=== PATIENT | male | born 1940 | race Caucasian/White ===

== ENCOUNTER → 2017-12-23 | Day surgery (SDC) | payer MEDICARE, OTHER ==
[~2017-12-23] MED LIST: ASPIR 8181 MG PO; ATENOLOL50 MG PO; CRESTOR10 MG PO; FENTANYL CITRATE/PF 100MCG/2 ML INJ IV ONE; FUROSEMIDE40 MG PO; GLIPIZIDE5 MG PO; GLUCAGON FOR INJ 1 MG VIAL IV ONE; HYOSCYAMINE SULFATE 0.5 MG/ML INJ IV ONE; KEFLEX500 MG PO; KETAMINE HCL INJ 50 MG/ML 10 ML VIAL IV ONE; LIDOCAINE HCL 2% LOCAL INJ 5 ML SDV VIAL INJ ONE; METFORMIN HCL500 M2 PO; MIDAZOLAM HCL 2 MG/2 ML VIAL INJ ONE; MULTAQ400 MG PO; MULTI-VITAMIN1 EACH; PROPOFOL IV EMULSION 10 MG/ML 50 ML VIAL IV ONE; PROTONIX PO; ULTRACET PO; VIT D3 PO; ZESTRIL10 MG PO; [UNRECOGNIZED DRUG - OTHER] INJ
[2017-12-23 17:20] VITALS: BP 143/80
--- NOTE | 2017-12-23 17:52 | Operative Report ---
DATE OF PROCEDURE: December 23, 2017 REFERRING PHYSICIAN: Dr. Cindy Canela PROCEDURES PERFORMED 1. Esophagogastroduodenoscopy with biopsies. 2. Colonoscopy with polypectomy and biopsies. INDICATIONS FOR EGD: Anemia, guaiac-positive stools. INDICATIONS FOR COLONOSCOPY: Surveillance colonoscopy, personal history of colon polyps. MEDICATION: Patient was done under MAC. Please see anesthesiologist's note. PROCEDURE: With the patient in the left lateral decubitus position, the flexible fiberoptic Olympus gastroscope was introduced into the esophagus under direct visualization without any difficulty. There was some patchy erythema noted in the distal esophagus. The scope was then advanced with ease into the stomach, traversing a small sliding hiatal hernia. Mucosa overlying the antrum and the body revealed some patchy erythema and low-grade edema, and biopsies were obtained and sent to stain for H. pylori. Pylorus appeared to be of normal contour and shape. It was intubated with ease, and the scope was advanced all the way to the 2nd portion of the duodenum. The scope was then withdrawn slowly. Mucosa overlying the proximal 2nd portion and the duodenal bulb appeared to be within normal limits. The scope was then withdrawn back into the stomach and retroflexed. Mucosa overlying the fundus and the cardia appeared to be within normal limits. The scope was then straightened out. The stomach was decompressed. Scope was subsequently withdrawn. Patient tolerated the procedure well. IMPRESSION 1. Mild distal esophagitis. 2. Small sliding hiatal hernia. 3. Gastritis, biopsied. Biopsies sent to stain for H. pylori. PLAN: Follow up histology. Initiate Protonix 40 mg 1 p.o. q.a.m. a.c. The patient was then turned around. After adequate lubrication of the anal canal, a flexible fiberoptic Olympus colonoscope was inserted into the rectum with ease and advanced all the way to the cecum. A large fungating mass was noted in the cecum, and biopsies were obtained. The ascending appeared to be within normal limits. One polyp was snared from the transverse colon. The descending appeared to be within normal limits. Some diverticular disease was noted in the sigmoid colon. One polyp was snared from the sigmoid colon. One polyp was hot biopsied from the rectum. The scope was then retroflexed into the distal rectum, and small internal hemorrhoids were noted, none of which was actively bleeding. The scope was then straightened out. It was subsequently withdrawn. Patient tolerated the procedure well. IMPRESSION 1. Large cecal mass, biopsied. 2. Transverse colon polyp, snared. 3. Sigmoid colon polyp, snared. 4. Diverticulosis. 5. Rectal polyp, hot biopsied. 6. Internal hemorrhoids, none actively bleeding. PLAN: Follow up histology. Patient will need a CT scan of the abdomen and pelvis and a general surgical consultation. Job#: [id number] cc:CINDY CANELA MD
== END | disposition home or self-care (01) ==
LOC: OR 12:31
PROVIDERS: ATTEND Internal Medicine Gastroenterology
DX: C18.0 Malignant neoplasm of cecum (principal); D12.3 Benign neoplasm of transverse colon; D12.5 Benign neoplasm of sigmoid colon; K62.1 Rectal polyp; K29.70 Gastritis, unspecified, without bleeding; K44.9 Diaphragmatic hernia without obstruction or gangrene; K20.9 Esophagitis, unspecified; D64.9 Anemia, unspecified; K57.30 Diverticulosis of large intestine without perforation or abscess without bleeding; R19.5 Other fecal abnormalities; K64.8 Other hemorrhoids; G47.33 Obstructive sleep apnea (adult) (pediatric); I25.810 Atherosclerosis of coronary artery bypass graft(s) without angina pectoris; E66.9 Obesity, unspecified; E11.9 Type 2 diabetes mellitus without complications; I10 Essential (primary) hypertension; F41.9 Anxiety disorder, unspecified; Z88.2 Allergy status to sulfonamides; Z79.82 Long term (current) use of aspirin; Z79.84 Long term (current) use of oral hypoglycemic drugs; Z68.35 Body mass index [BMI] 35.0-35.9, adult; Z85.46 Personal history of malignant neoplasm of prostate; Z95.1 Presence of aortocoronary bypass graft; Z80.0 Family history of malignant neoplasm of digestive organs
CPT/HCPCS: 36415; 43239; 45380; 45384; 45385; 82948; 88305; 88312; 88342; J1610; J1980; J2001; J2250

== ENCOUNTER → 2017-12-29 | Outpatient (CLI) | payer MEDICARE, OTHER ==
[~2017-12-29] MED LIST changes: +DIATRIZOATE MEGL/DIATRIZOA SOD 30 ML BTL PO ONE; -FENTANYL CITRATE/PF 100MCG/2 ML INJ IV ONE; -GLUCAGON FOR INJ 1 MG VIAL IV ONE; -HYOSCYAMINE SULFATE 0.5 MG/ML INJ IV ONE; +IOPAMIDOL 370 MG/ML 200 ML INFUS..BTL INJ ONE; -KETAMINE HCL INJ 50 MG/ML 10 ML VIAL IV ONE; -LIDOCAINE HCL 2% LOCAL INJ 5 ML SDV VIAL INJ ONE; -MIDAZOLAM HCL 2 MG/2 ML VIAL INJ ONE; -PROPOFOL IV EMULSION 10 MG/ML 50 ML VIAL IV ONE; +SODIUM CHLORIDE 0.9% 50ML 50 ML ONE
[2017-12-29 16:09] LABS: BLOOD UREA NITROGEN 16 mg/dL (7-26); BUN/CREATININE RATIO 15 (6-25); CREATININE, SERUM 1.07 mg/dL (0.72-1.25); EST GLOMERULAR FILTRATION RATE > 60 ML/MIN (60-)
--- NOTE | 2017-12-29 17:38 | Diagnostic Imaging Report ---
EXAM: CT of the abdomen and pelvis WITH contrast HISTORY: Mass, prostate cancer, colonoscopy one week ago, blood in stool COMPARISON: None available. TECHNIQUE: The abdomen and pelvis were scanned utilizing a multidetector helical scanner. Coronal and sagittal reformats are provided. PROTOCOL: Routine IV CONTRAST: 100 cc of Isovue-370. ORAL CONTRAST: Dilute Gastrografin RADIATION DOSE: Total DLP: 863.01 mGy*cm Estimated effective dose: (DLP x 0.015 x size factor) Dose modulation, iterative reconstruction, and/or weight based adjustment of the mA/kV was utilized to reduce the radiation dose to as low as reasonably achievable. COMPLICATIONS: None FINDINGS: LOWER THORAX: Mild bilateral atelectasis versus scarring. HEPATOBILIARY: No focal hepatic lesions. No biliary ductal dilatation. The gallbladder is unremarkable. SPLEEN: No splenomegaly. PANCREAS: No focal masses or ductal dilatation. ADRENALS: No discrete adrenal nodule. KIDNEYS/URETERS: No hydronephrosis, stones, or solid mass lesions. PELVIC ORGANS/BLADDER: Mild enlargement and nonspecific lobulated mass effect on the base of the urinary bladder by the prostate. PERITONEUM / RETROPERITONEUM: No free air or fluid. LYMPH NODES: No pathologically enlarged lymph node. VESSELS: Diffuse scattered atherosclerotic vascular calcifications. GI TRACT: No bowel dilation. Radiopaque contrast material predominantly within the distal small bowel and likely proximal colon. Nonspecific segmental ill-defined finley and likely wall thickening in the region of the cecum and proximal ascending colon. Mild adjacent fat straining. BONES: Diffusely decreased mineralization of the osseous structures limits bone detail. Multifocal degenerative changes, most notably severe at L5-S1 with bilateral L5 pars defects and grade 1 anterolisthesis of L5 on S1. SOFT TISSUES: Unremarkable. IMPRESSION: Mild nonspecific focal colitis involving the cecum and proximal ascending colon. Signed by: Dr. Olivier Pérez D.O., M.M.M. on 12/29/2017 5:35 PM
== END ==
LOC: CT 14:52
PROVIDERS: ATTEND Internal Medicine Gastroenterology
DX: C18.9 Malignant neoplasm of colon, unspecified (principal)
CPT/HCPCS: 36415; 74177; 82565; 84520; Q9663; Q9967

== ENCOUNTER 2018-01-24 09:39 | Inpatient (IN) | payer MEDICARE, OTHER ==
[2018-01-20 11:37] LABS: BASOPHILS # (AUTO) 0.1 (0.0-0.1); BASOPHILS % 0.7 % (0.0-1.0); EOSINOPHILS # (AUTO) 0.5 (0.0-0.4); EOSINOPHILS % 5.7 % (0.0-6.0); HEMATOCRIT 31.7 % (38.2-49.6); HEMOGLOBIN 9.9 g/dL (14.0-18.0); LYMPHOCYTES # (AUTO) 1.3 (1.0-3.2); LYMPHOCYTES % 16.2 % (18.0-39.1); MEAN CORPUSCULAR HEMOGLOBIN 25.9 pg (28-32); MEAN CORPUSCULAR HGB CONC 31.2 g/dL (31-35); MONOCYTES # (AUTO) 0.9 (0.2-0.8); MONOCYTES % 10.9 % (4.4-11.3); NEUTROPHILS # (AUTO) 5.5 (2.1-6.9); NEUTROPHILS % 66.3 % (38.7-80.0); PLATELET COUNT 217 x10e3/uL (140-360); RED BLOOD COUNT 3.82 x10e6/uL (4.3-5.7); RED CELL DISTRIBUTION WIDTH 14.5 % (11.7-14.4)
--- NOTE | 2018-01-20 11:42 | Diagnostic Imaging Report ---
EXAMINATION: PA and lateral views of the chest. COMPARISON: CT abdomen and pelvis 12/29/2017 CLINICAL HISTORY: Preoperative study for colon surgery DISCUSSION: The lungs are well-inflated. No focal airspace consolidation, pleural effusion, or pneumothorax. Mild prominence of the pulmonary interstitium with a basal predominance likely reflects age-related fibrotic changes. Median sternotomy wires, the most superior of which is fractured. Tortuous thoracic aorta with atherosclerotic calcification. Normal heart size. No pulmonary edema. No acute osseous abnormality. Multilevel degenerative disc changes of the thoracic spine. IMPRESSION: No acute cardiopulmonary abnormalities. Signed by: Dr. Laith Bergman M.D. on 01/20/2018 11:39 AM
[2018-01-20 11:56] LABS: ANION GAP 11.2 mmol/L (8-16); BLOOD UREA NITROGEN 15 mg/dL (7-26); BUN/CREATININE RATIO 14 (6-25); CALCIUM 9.6 mg/dL (8.4-10.2); CARBON DIOXIDE 31 mmol/L (22-29); CHLORIDE 102 mmol/L (98-107); CREATININE, SERUM 1.04 mg/dL (0.72-1.25); EST GLOMERULAR FILTRATION RATE > 60 ML/MIN (60-); GLUCOSE 99 mg/dL (74-118); POTASSIUM 4.2 mmol/L (3.5-5.1); SODIUM 140 mmol/L (136-145)
[~2018-01-24] VITALS: Ht 172.7 cm; Wt 119.7 kg
[~2018-01-24 09:39] MED LIST changes: -DIATRIZOATE MEGL/DIATRIZOA SOD 30 ML BTL PO ONE; -IOPAMIDOL 370 MG/ML 200 ML INFUS..BTL INJ ONE; -MULTAQ400 MG PO; -SODIUM CHLORIDE 0.9% 50ML 50 ML ONE; -ULTRACET PO
--- OUTSIDE RECORDS SUMMARY | 2018-01-24 09:41 | XMS REPORT ---
Author Author [facility] Address Unknown Phone Unavailable Care Team Providers Care [employer] Name Role Phone Jose DELAROSA Unavailable Unavailable SETH CANELA Unavailable Unavailable Problems This patient has no known problems. Allergies, Adverse Reactions, Alerts This patient has no known allergies or adverse reactions. Medications This patient has no known medications. Results Test Description Test Time Test Comments Text Results Atomic Results Result Comments CHEST 2 VIEWS 2018-01-20 11:37:00 [place] [address] Patient Name: PATSY MUSTAFA MR #: [id number] : 1940 Age/Sex: 78/M Req #: [id number] Adm Physician: Ordered by: HOANG DELAROSA MD Report #: [id number] Location: OR Room/Bed: Procedure: [id number] DX/CHEST 2 VIEWS Exam Date: 01/20/18 Exam Time: 1115 REPORT STATUS: Signed EXAMINATION: PA and lateral views of the chest. COMPARISON: CT abdomen and pelvis 12/29/2017 CLINICAL HISTORY: Preoperative study for colon surgery DISCUSSION: The lungs are well-inflated. No focal airspace consolidation, pleural effusion, or pneumothorax. Mild prominence of the pulmonary interstitium with a basal predominance likely reflects age-related fibrotic changes. Median sternotomy wires, the most superior of which is fractured. Tortuous thoracic aorta with atherosclerotic calcification. Normal heart size. No pulmonary edema. No acute osseous abnormality. Multilevel degenerative disc changes of the thoracic spine. IMPRESSION: No acute cardiopulmonary abnormalities. Signed by: Dr. Sixto Mahoney M.D. on 01/20/2018 11:39 AM Dictated By: SIXTO MAHONEY MD 38 Transcribed By: CHILANGO on 01/20/181138 COPY TO: HOANG DELAROSA MD CT ABDOMEN/PELVIS W 2017-12-29 17:23:00 [place] [address] Patient Name: PATSY MUSTAFA MR #: [id number] : 1940 Age/Sex: 77/M Req #: [id number] Adm Physician: Ordered by: SETH CANELA MD Report #: [id number] Location: CT Room/Bed: Procedure: [id number] CT/CT ABDOMEN/PELVIS W Exam Date: 12/29/17 Exam Time: 1645 REPORT STATUS: Signed EXAM: CT of the abdomen and pelvis WITH contrast HISTORY: Mass, prostate cancer, colonoscopy one week ago, blood in stool COMPARISON: None available. TECHNIQUE: The abdomen and pelvis were scanned utilizing a multidetector helical scanner. Coronal and sagittal reformats are provided. PROTOCOL: Routine IV CONTRAST: 100 cc of Isovue-370. ORAL CONTRAST: Dilute Gastrografin RADIATION DOSE: Total DLP: 863.01 mGy*cm Estimated effective dose: (DLP x 0.015 x size factor) Dose modulation, iterative reconstruction, and/or weight based adjustment of the mA/kV was utilized to reduce the radiation dose to as low as reasonably achievable. COMPLICATIONS: None FINDINGS: LOWER THORAX: Mild bilateral atelectasis versus scarring. HEPATOBILIARY: No focal hepatic lesions. No biliary ductal dilatation. The gallbladder is unremarkable. SPLEEN: No splenomegaly. PANCREAS: No focal masses or ductal dilatation. ADRENALS: No discrete adrenal nodule. KIDNEYS/URETERS: No hydronephrosis, stones, or solid mass lesions. PELVIC ORGANS/BLADDER: Mild enlargement and nonspecific lobulated mass effect on the base of the urinary bladder by the prostate. PERITONEUM / RETROPERITONEUM: No free air or fluid. LYMPH NODES: No pathologically enlarged lymph node. VESSELS: Diffuse scattered atherosclerotic vascular calcifications. GI TRACT: No bowel dilation. Radiopaque contrast material predominantly within the distal small bowel and likely proximal colon. Nonspecific segmental ill-defined finley and likely wall thickening in the region of the cecum and proximal ascending colon. Mild adjacent fat straining. BONES: Diffusely decreased mineralization of the osseous structures limits bone detail. Multifocal degenerative changes, most notably severe at L5-S1 with bilateral L5 pars defects and grade 1 anterolisthesis of L5 on S1. SOFT TISSUES: Unremarkable. IMPRESSION: Mild nonspecific focal colitis involving the cecum and proximal ascending colon. Signed by: Dr. Olivier Pérez D.O., M.M.M. on 12/29/2017 5:35 PM Dictated By: OLIVIER PÉREZ DO 1735 Transcribed By: CHILANGO on 12/29/17 173 COPY TO: SETH CANELA MD
[2018-01-24] MEDS ORDERED: ACETAMINOPHEN 1000 MG/100 ML 100 ML IV ONE (13:21)
[2018-01-24] MEDS ORDERED: HYDROMORPHONE 1MG/1ML INJ IV PRN (14:45)
[2018-01-24] MEDS ORDERED: ONDANSETRON HCL INJ 2 MG/ML VIAL IV PRN (14:45)
[2018-01-24] MEDS ORDERED: ACETAMINOPHEN 1000 MG/100 ML IV PRN (14:45)
[2018-01-24] MEDS ORDERED: HYDROMORPHONE 0.2MG/ML-SOD CHL 30ML PCA SYRINGE IV ONE (14:59)
[2018-01-24] MEDS ORDERED: HYDROMORPHONE 2MG/ML 2 MG/ML ML ONE (15:07)
--- NOTE | 2018-01-24 15:16 | Operative Report ---
DATE OF PROCEDURE: January 24, 2018 PREOPERATIVE DIAGNOSIS: Carcinoma of the cecum. POSTOPERATIVE DIAGNOSIS: Carcinoma of the cecum. OPERATION PERFORMED: Exploratory laparotomy and right hemicolectomy. GEOMAGNETIST: Dr. Jah Barnard and SATYA Carroll. ANESTHESIA: General. COMPLICATIONS: None. ESTIMATED BLOOD LOSS: 50 mL. DESCRIPTION OF PROCEDURE: With the patient lying in bed in the supine position under general endotracheal anesthesia, the abdomen was prepped with Betadine solution and draped in the usual manner. A midline incision was made, was carried down through the subcutaneous tissue and through the midline fascia. The peritoneum was opened and the abdomen was entered. Upon entering the abdominal cavity, exploration revealed that there was a palpable mass in the cecal pouch. The rest the abdominal exploration was within normal limits. The liver was free of any metastatic disease that was palpable and the rest of the bowel also did not show any sign of any metastatic spread of disease. We decided to go ahead and proceed with the right hemicolectomy. The lesion in the cecum was actually showing some puckering of the serosa. The right colon was then mobilized off the lateral gutter and the duodenum and ureter were from the specimen. The colon was swung medially. The hepatocolic ligament was then brought down using the EnSeal device. At this point, the colon was then divided at the level of the mid transverse colon with an application of the GILMAR 75 stapler and similarly the small bowel was divided with another application of the GILMAR 75 stapler. The mesentery was then scored and was then divided using the EnSeal device. The larger vessels were also ligated with 0 silk and the specimen was totally and completely removed and sent for pathological examination. The anastomosis was then performed bringing the terminal ileum to the transverse colon using another application of the GILMAR 75 stapler. The remaining opening was closed with a TIA-60 stapler. Gloves and instruments were changed. The anastomosis was reinforced with 3-0 silk. The mesenteric rent was then closed with a running suture of 2-0 Vicryl. The abdomen was copiously irrigated and perfect hemostasis was ascertained and the abdomen was then closed in layers. The peritoneum was closed with a running suture number 1 Vicryl. The midline fascia was closed with a running suture number 1 Vicryl, and the skin was closed with clips. A dressing was applied. The sponge, lap and needle count was correct. The patient tolerated the procedure well and returned to the recovery room in stable condition. Job#: [id number] ANGÉLICA
[2018-01-24 15:58] VITALS: BP 181/79
[2018-01-24 16:35] VITALS: BP 175/85
[2018-01-24] MEDS: LISINOPRIL 10 MG TAB PO SCH (17:30)
[2018-01-24] MEDS: SODIUM CHLORIDE 0.9% 1000ML 1,000 ML IV SCH (17:32)
[2018-01-24] MEDS ORDERED: MORPHINE SULFATE INJ 10 MG/ML ONE (17:39)
[2018-01-24] MEDS ORDERED: FENTANYL CITRATE/PF 100MCG/2 ML INJ ONE (17:39)
[2018-01-24] MEDS ORDERED: MIDAZOLAM HCL 2 MG/2 ML VIAL ONE (17:39)
[2018-01-24] MEDS: PANTOPRAZOLE 40 MG 10ML VIAL IV SCH (17:40)
[2018-01-24] MEDS: CEFOXITIN SOD 1 GM VIAL IV SCH (17:45)
[2018-01-24] MEDS ORDERED: CEFOXITIN 1GM/ NS 50ML 50 ML IV SCH (18:00)
[2018-01-24] MEDS: INSULIN REGULAR, HUMAN 100 UNIT/1 ML 3ML VIAL SQ SCH (18:00)
[2018-01-24] MEDS: SODIUM CHLORIDE 0.9% 250ML IRRIG IR SCH (18:30)
[2018-01-24] MEDS ORDERED: DEXAMETHASONE SOD PHOS INJ 4 MG/ML VIAL ONE (18:56)
[2018-01-24] MEDS ORDERED: ONDANSETRON HCL INJ 2 MG/ML VIAL ONE (18:56)
[2018-01-24] MEDS ORDERED: SEVOFLURANE INHAL SOLN 250 ML PEN BTL ONE (18:56)
[2018-01-24] MEDS ORDERED: ROCURONIUM BROMIDE 10 MG/ML 5ML VIAL ONE (18:56)
[2018-01-24] MEDS ORDERED: PROPOFOL IV EMULSION 10 MG/ML 20 ML VIAL ONE (18:56)
[2018-01-24] MEDS ORDERED: SUCCINYLCHOLINE 200 MG/10 ML SYR ONE (18:56)
[2018-01-24] MEDS ORDERED: LIDOCAINE HCL 2% LOCAL INJ 5 ML SDV VIAL INJ ONE (18:56)
[2018-01-24] MEDS ORDERED: ACETAMINOPHEN 1000 MG/100 ML IV ONE (18:56)
[2018-01-24] MEDS ORDERED: GLYCOPYRROLATE INJ 1MG/ 5 ML SYR ONE (18:56)
[2018-01-24] MEDS ORDERED: NEOSTIGMINE 5 MG/5ML SYR ONE (18:56)
[2018-01-24 20:00] VITALS: BP 167/77
[2018-01-24 20:05] VITALS: BP 167/77
[2018-01-24] MEDS: HYDROMORPHONE 2MG/ML 2 MG/ML ML IV PRN ×2 (20:20→23:40)
[2018-01-24] MEDS: ATENOLOL 50 MG TAB PO SCH (21:15)
[2018-01-25] VITALS (8 sets, daily range): BP systolic 115–166; BP diastolic 55–76
[2018-01-25] MEDS: CEFOXITIN SOD 1 GM VIAL IV SCH (00:20)
[2018-01-25] MEDS: SODIUM CHLORIDE 0.9% 250ML IRRIG IR SCH ×5 (00:38→14:45)
[2018-01-25] MEDS: SODIUM CHLORIDE 0.9% 1000ML 1,000 ML IV SCH ×3 (00:38→21:29)
[2018-01-25] MEDS: HYDROMORPHONE 2MG/ML 2 MG/ML ML IV PRN ×3 (05:25→18:41)
[2018-01-25] MEDS: INSULIN REGULAR, HUMAN 100 UNIT/1 ML 3ML VIAL SQ SCH ×4 (06:00→18:00)
[2018-01-25 06:18] LABS: BASOPHILS % 0.2 % (0.0-1.0); HEMATOCRIT 31.4 % (38.2-49.6); HEMOGLOBIN 9.9 g/dL (14.0-18.0); LYMPHOCYTES # (AUTO) 0.6 (1.0-3.2); LYMPHOCYTES % 5.4 % (18.0-39.1); MEAN CORPUSCULAR HEMOGLOBIN 25.8 pg (28-32); MEAN CORPUSCULAR HGB CONC 31.5 g/dL (31-35); MEAN CORPUSCULAR VOLUME 81.8 fL (81-99); MONOCYTES % 8.7 % (4.4-11.3); NEUTROPHILS # (AUTO) 9.7 (2.1-6.9); NEUTROPHILS % 85.3 % (38.7-80.0); PLATELET COUNT 224 x10e3/uL (140-360); RED BLOOD COUNT 3.84 x10e6/uL (4.3-5.7); RED CELL DISTRIBUTION WIDTH 14.5 % (11.7-14.4)
[2018-01-25 06:51] LABS: ANION GAP 14.3 mmol/L (8-16); BLOOD UREA NITROGEN 7 mg/dL (7-26); BUN/CREATININE RATIO 8 (6-25); CALCIUM 8.7 mg/dL (8.4-10.2); CARBON DIOXIDE 25 mmol/L (22-29); CHLORIDE 103 mmol/L (98-107); CREATININE, SERUM 0.86 mg/dL (0.72-1.25); EST GLOMERULAR FILTRATION RATE > 60 ML/MIN (60-); GLUCOSE 139 mg/dL (74-118); POTASSIUM 4.3 mmol/L (3.5-5.1); SODIUM 138 mmol/L (136-145)
[2018-01-25] MEDS: LISINOPRIL 10 MG TAB PO SCH ×2 (09:00→17:26)
[2018-01-25] MEDS: PANTOPRAZOLE 40 MG 10ML VIAL IV SCH (10:32)
[2018-01-25] MEDS ORDERED: CEFOXITIN SOD 1 GM VIAL ONE (18:57)
[2018-01-25] MEDS: ATENOLOL 50 MG TAB PO SCH (21:30)
[2018-01-25] MEDS: BISACODYL 10 MG SUPP PR SCH (21:30)
[2018-01-26] VITALS (7 sets, daily range): BP systolic 148–180; BP diastolic 72–77
[2018-01-26] MEDS: HYDROMORPHONE 2MG/ML 2 MG/ML ML IV PRN ×2 (00:10→09:09)
[2018-01-26 05:53] LABS: BASOPHILS # (AUTO) 0.1 (0.0-0.1); BASOPHILS % 0.5 % (0.0-1.0); EOSINOPHILS # (AUTO) 0.3 (0.0-0.4); EOSINOPHILS % 2.5 % (0.0-6.0); HEMATOCRIT 30.7 % (38.2-49.6); HEMOGLOBIN 9.6 g/dL (14.0-18.0); LYMPHOCYTES # (AUTO) 1.4 (1.0-3.2); LYMPHOCYTES % 12.9 % (18.0-39.1); MEAN CORPUSCULAR HEMOGLOBIN 25.8 pg (28-32); MEAN CORPUSCULAR HGB CONC 31.3 g/dL (31-35); MEAN CORPUSCULAR VOLUME 82.5 fL (81-99); MONOCYTES % 9.7 % (4.4-11.3); NEUTROPHILS # (AUTO) 7.7 (2.1-6.9); PLATELET COUNT 206 x10e3/uL (140-360); RED BLOOD COUNT 3.72 x10e6/uL (4.3-5.7); RED CELL DISTRIBUTION WIDTH 14.5 % (11.7-14.4)
[2018-01-26] MEDS: INSULIN REGULAR, HUMAN 100 UNIT/1 ML 3ML VIAL SQ SCH ×4 (06:00→19:24)
[2018-01-26] MEDS: SODIUM CHLORIDE 0.9% 1000ML 1,000 ML IV SCH (06:04)
[2018-01-26 06:12] LABS: ANION GAP 12.9 mmol/L (8-16); BLOOD UREA NITROGEN 10 mg/dL (7-26); BUN/CREATININE RATIO 12 (6-25); CALCIUM 8.7 mg/dL (8.4-10.2); CARBON DIOXIDE 25 mmol/L (22-29); CHLORIDE 103 mmol/L (98-107); CREATININE, SERUM 0.83 mg/dL (0.72-1.25); EST GLOMERULAR FILTRATION RATE > 60 ML/MIN (60-); GLUCOSE 121 mg/dL (74-118); POTASSIUM 3.9 mmol/L (3.5-5.1); SODIUM 137 mmol/L (136-145)
[2018-01-26] MEDS: BISACODYL 10 MG SUPP PR SCH ×2 (09:08→21:00)
[2018-01-26] MEDS: PANTOPRAZOLE 40 MG 10ML VIAL IV SCH (09:09)
[2018-01-26] MEDS: LISINOPRIL 10 MG TAB PO SCH ×2 (09:09→17:13)
[2018-01-26] MEDS ORDERED: ZOLPIDEM TARTRATE 10 MG TAB PO PRN (10:30)
[2018-01-26] MEDS ORDERED: FUROSEMIDE INJ 10 MG/ML 4 ML VIAL IV NR (20:00)
[2018-01-26] MEDS: ATENOLOL 50 MG TAB PO SCH (21:18)
[2018-01-27] VITALS (9 sets, daily range): BP systolic 102–143; BP diastolic 61–87
[2018-01-27 05:55] LABS: BASOPHILS % 0.4 % (0.0-1.0); EOSINOPHILS # (AUTO) 0.3 (0.0-0.4); EOSINOPHILS % 2.9 % (0.0-6.0); HEMATOCRIT 30.4 % (38.2-49.6); HEMOGLOBIN 9.5 g/dL (14.0-18.0); LYMPHOCYTES # (AUTO) 1.2 (1.0-3.2); LYMPHOCYTES % 11.9 % (18.0-39.1); MEAN CORPUSCULAR HEMOGLOBIN 25.4 pg (28-32); MEAN CORPUSCULAR HGB CONC 31.3 g/dL (31-35); MEAN CORPUSCULAR VOLUME 81.3 fL (81-99); MONOCYTES # (AUTO) 0.9 (0.2-0.8); MONOCYTES % 9.2 % (4.4-11.3); NEUTROPHILS # (AUTO) 7.6 (2.1-6.9); NEUTROPHILS % 75.2 % (38.7-80.0); PLATELET COUNT 214 x10e3/uL (140-360); RED BLOOD COUNT 3.74 x10e6/uL (4.3-5.7); RED CELL DISTRIBUTION WIDTH 14.6 % (11.7-14.4)
[2018-01-27] MEDS: INSULIN REGULAR, HUMAN 100 UNIT/1 ML 3ML VIAL SQ SCH ×5 (05:59→23:48)
[2018-01-27 06:12] LABS: ANION GAP 13.6 mmol/L (8-16); BLOOD UREA NITROGEN 7 mg/dL (7-26); BUN/CREATININE RATIO 9 (6-25); CALCIUM 8.6 mg/dL (8.4-10.2); CARBON DIOXIDE 26 mmol/L (22-29); CHLORIDE 98 mmol/L (98-107); CREATININE, SERUM 0.81 mg/dL (0.72-1.25); EST GLOMERULAR FILTRATION RATE > 60 ML/MIN (60-); GLUCOSE 132 mg/dL (74-118); POTASSIUM 3.6 mmol/L (3.5-5.1); SODIUM 134 mmol/L (136-145)
[2018-01-27] MEDS: BISACODYL 10 MG SUPP PR SCH (08:00)
[2018-01-27] MEDS: PANTOPRAZOLE 40 MG 10ML VIAL IV SCH (08:48)
[2018-01-27] MEDS: LISINOPRIL 10 MG TAB PO SCH ×2 (08:49→18:18)
[2018-01-27] MEDS ORDERED: POTASSIUM CHLORIDE 20 MEQ TAB CR PO STA (10:57)
[2018-01-27] MEDS ORDERED: METOPROLOL TARTRATE 25 MG TAB PO PRN (11:15)
[2018-01-27] MEDS: DRONEDARONE 400 MG TAB PO SCH ×2 (11:22→18:17)
[2018-01-27] MEDS: FUROSEMIDE INJ 10 MG/ML 4 ML VIAL IV SCH (11:22)
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
[2018-01-27] MEDS: ATENOLOL 50 MG TAB PO SCH (21:12)
[2018-01-28] MEDS: INSULIN REGULAR, HUMAN 100 UNIT/1 ML 3ML VIAL SQ SCH ×2 (06:00→12:00)
[2018-01-28 06:13] VITALS: BP 150/94
[2018-01-28 06:21] LABS: BASOPHILS % 0.4 % (0.0-1.0); EOSINOPHILS # (AUTO) 0.4 (0.0-0.4); EOSINOPHILS % 3.8 % (0.0-6.0); HEMATOCRIT 33.8 % (38.2-49.6); HEMOGLOBIN 10.8 g/dL (14.0-18.0); LYMPHOCYTES # (AUTO) 1.5 (1.0-3.2); LYMPHOCYTES % 15.8 % (18.0-39.1); MEAN CORPUSCULAR HEMOGLOBIN 25.7 pg (28-32); MEAN CORPUSCULAR VOLUME 80.5 fL (81-99); MONOCYTES # (AUTO) 0.9 (0.2-0.8); MONOCYTES % 9.7 % (4.4-11.3); NEUTROPHILS # (AUTO) 6.8 (2.1-6.9); NEUTROPHILS % 69.8 % (38.7-80.0); PLATELET COUNT 279 x10e3/uL (140-360); RED CELL DISTRIBUTION WIDTH 14.5 % (11.7-14.4)
[2018-01-28 07:08] LABS: ALANINE AMINOTRANSFERASE 17 IU/L (0-55); ALBUMIN/GLOBULIN RATIO 0.8 (0.8-2.0); ALKALINE PHOSPHATASE 92 IU/L (40-150); ANION GAP 15.4 mmol/L (8-16); BLOOD UREA NITROGEN 10 mg/dL (7-26); BUN/CREATININE RATIO 9 (6-25); CALCIUM 9.3 mg/dL (8.4-10.2); CARBON DIOXIDE 27 mmol/L (22-29); CHLORIDE 94 mmol/L (98-107); CREATININE, SERUM 1.07 mg/dL (0.72-1.25); EST GLOMERULAR FILTRATION RATE > 60 ML/MIN (60-); GLUCOSE 131 mg/dL (74-118); POTASSIUM 4.4 mmol/L (3.5-5.1); SODIUM 132 mmol/L (136-145)
[2018-01-28 07:21] LABS: THYROID STIMULATING HORMONE 2.379 uIU/mL (0.350-4.940)
[2018-01-28 07:41] VITALS: BP 142/73
[2018-01-28] MEDS: FUROSEMIDE INJ 10 MG/ML 4 ML VIAL IV SCH (08:45)
[2018-01-28] MEDS: PANTOPRAZOLE 40 MG 10ML VIAL IV SCH (08:45)
[2018-01-28] MEDS: LISINOPRIL 10 MG TAB PO SCH (08:45)
[2018-01-28] MEDS: DRONEDARONE 400 MG TAB PO SCH (08:45)
[2018-01-28 09:23] VITALS: BP 142/73
[2018-01-28] MEDS ORDERED: FUROSEMIDE INJ 10 MG/ML 4 ML VIAL IV SCH (11:00)
[2018-01-28 12:45] VITALS: BP 117/67
[2018-01-28] MEDS ORDERED: MULTAQ400 MG PO (14:22)
[2018-01-28] MEDS ORDERED: ULTRACET PO (14:24)
== END 2018-01-28 15:30 | disposition home or self-care (01) | DRG 330 ==
LOC: OR 09:39 → PACU V 14:36 → MED/SURG 15:31
PROVIDERS: ADMIT Surgery; ATTEND Surgery
PROC: 0DTF0ZZ Resection of Right Large Intestine, Open Approach (ICD-10-PCS; principal; 2018-01-24 12:34)
DX: C18.0 Malignant neoplasm of cecum (principal); I97.191 Other postprocedural cardiac functional disturbances following other surgery; E11.9 Type 2 diabetes mellitus without complications; I10 Essential (primary) hypertension; Z95.1 Presence of aortocoronary bypass graft; Z88.2 Allergy status to sulfonamides; D64.9 Anemia, unspecified; G47.33 Obstructive sleep apnea (adult) (pediatric); I25.10 Atherosclerotic heart disease of native coronary artery without angina pectoris; E78.5 Hyperlipidemia, unspecified; K44.9 Diaphragmatic hernia without obstruction or gangrene; Z85.46 Personal history of malignant neoplasm of prostate; I48.0 Paroxysmal atrial fibrillation; E78.00 Pure hypercholesterolemia, unspecified; I83.893 Varicose veins of bilateral lower extremities with other complications; Z87.891 Personal history of nicotine dependence; Z01.810 Encounter for preprocedural cardiovascular examination; Z01.812 Encounter for preprocedural laboratory examination; Z01.811 Encounter for preprocedural respiratory examination
CPT/HCPCS: 36415; 71046; 80048; 80053; 82948; 84443; 85025; 86850; 86900; 88307; 88309; 93005; 93306; J0694; J1100; J1940; J2001; J2250; J2270; J2405; J7030

== ENCOUNTER → 2018-10-30 | Outpatient (CLI) | payer MEDICARE, OTHER ==
[~2018-10-30] MED LIST changes: +IOPAMIDOL 370 MG/ML 200 ML INFUS..BTL INJ ONE; +MULTAQ400 MG PO; +SODIUM CHLORIDE 0.9% 50ML 50 ML ONE; +ULTRACET PO
--- NOTE | 2018-10-30 14:43 | Diagnostic Imaging Report ---
EXAM: CT Abdomen and Pelvis WITH intravenous contrast INDICATION: Abdominal pain COMPARISON: CT abdomen pelvis of 12/29/2017 TECHNIQUE: Abdomen and pelvis were scanned utilizing a multidetector helical scanner from the lung base to the pubic symphysis after administration of IV contrast. Coronal and sagittal reformations were obtained. Routine protocol was performed. Scan was performed during portal venous phase. IV CONTRAST: 100mL of Isovue 370 ORAL CONTRAST: Water RADIATION DOSE: Total DLP: 880.9 mGy*cm Dose modulation, iterative reconstruction, and/or weight based adjustment of the mA/kV was utilized to reduce the radiation dose to as low as reasonably achievable. FINDINGS: LOWER THORAX: Bibasilar dependent subsegmental atelectasis. No focal consolidation. Scattered athetotic calcifications of the coronary arteries. HEPATOBILIARY: No focal hepatic lesions. No biliary ductal dilatation. The gallbladder appears unremarkable. SPLEEN: No splenomegaly. PANCREAS: No focal masses or ductal dilatation. ADRENALS: No adrenal nodules. KIDNEYS/URETERS: No hydronephrosis, stones, or solid mass lesions. PELVIC ORGANS/BLADDER: Prostatomegaly to 5.4 cm. PERITONEUM / RETROPERITONEUM: No free air or fluid. LYMPH NODES: No lymphadenopathy. VESSELS: Diffuse atherosclerotic calcifications of the nonaneurysmal abdominal aorta and major branches. GI TRACT: Colonic diverticulosis. No CT evidence of diverticulitis. Postoperative findings of interval right colectomy. No abnormal bowel wall thickening. No bowel obstruction. BONES AND SOFT TISSUES: No acute osseous injury. Degenerative changes of the visualized spine. Anterolisthesis at L5-S1 with bilateral L5 pars interarticularis defects. No suspicious lytic or blastic lesions. IMPRESSION: Status post interval right colectomy. No abnormal bowel wall thickening or bowel obstruction. Diffuse atherosclerotic calcifications, including of the coronary arteries. Prostatomegaly. Signed by: Avani Medeiros MD on 10/30/2018 2:40 PM
== END ==
LOC: CT 12:13
DX: R10.9 Unspecified abdominal pain (principal); N40.0 Benign prostatic hyperplasia without lower urinary tract symptoms; Z85.00 Personal history of malignant neoplasm of unspecified digestive organ
CPT/HCPCS: 74177; Q9967

== ENCOUNTER 2019-11-08 05:05 | Observation (INO) | payer MEDICARE, OTHER ==
[2019-11-05 12:22] LABS: BASOPHILS # (AUTO) 0.1 (0.0-0.1); BASOPHILS % 1.1 % (0.0-1.0); EOSINOPHILS # (AUTO) 0.5 (0.0-0.4); EOSINOPHILS % 6.2 % (0.0-6.0); HEMATOCRIT 36.3 % (38.2-49.6); HEMOGLOBIN 12.1 g/dL (14.0-18.0); LYMPHOCYTES # (AUTO) 1.1 (1.0-3.2); LYMPHOCYTES % 15.6 % (18.0-39.1); MEAN CORPUSCULAR HEMOGLOBIN 30.1 pg (28-32); MEAN CORPUSCULAR HGB CONC 33.3 g/dL (31-35); MEAN CORPUSCULAR VOLUME 90.3 fL (81-99); MONOCYTES # (AUTO) 0.7 (0.2-0.8); MONOCYTES % 9.9 % (4.4-11.3); NEUTROPHILS # (AUTO) 4.8 (2.1-6.9); NEUTROPHILS % 66.8 % (38.7-80.0); PLATELET COUNT 158 x10e3/uL (140-360); RED BLOOD COUNT 4.02 x10e6/uL (4.3-5.7); RED CELL DISTRIBUTION WIDTH 13.1 % (11.7-14.4)
[2019-11-05 12:46] LABS: INR 1.28; PROTHROMBIN TIME 16.6 seconds (11.9-14.5)
[2019-11-05 12:47] LABS: PARTIAL THROMBOPLASTIN TIME 32.7 seconds (23.8-35.5)
[2019-11-05 12:50] LABS: ANION GAP 12.9 mmol/L (8-16); CALCIUM 9.5 mg/dL (8.4-10.2); CREATININE, SERUM 1.32 mg/dL (0.72-1.25); POTASSIUM 3.9 mmol/L (3.5-5.1)
[~2019-11-08] VITALS: Ht 182.9 cm; Wt 129.3 kg
[~2019-11-08 05:05] MED LIST changes: +FLOMAX0.4 MG PO; -IOPAMIDOL 370 MG/ML 200 ML INFUS..BTL INJ ONE; +IRON PO; +METOLAZONE5 MG PO; -SODIUM CHLORIDE 0.9% 50ML 50 ML ONE; +TYLENOL325 M2 PO; +VITAMIN D310 MCG PO; +XARELTO20 MG PO
[2019-11-08] MEDS ORDERED: CEFAZOLIN SOD 1 GM/NS 50ML 100 ML IV ONE (06:00)
[2019-11-08] MEDS ORDERED: BUPIVACAINE 0.5%/EPI 30 ML SDV INJ ONE (06:40)
[2019-11-08] MEDS ORDERED: VANCOMYCIN HCL 1 GM VIAL ONE (06:40)
[2019-11-08] MEDS ORDERED: THROMBIN FOR SOLN 5,000 UNIT VIAL ONE (06:40)
[2019-11-08] MEDS ORDERED: IBUPROFEN 800MG/ 200ML 200 ML IV ONE (07:12)
[2019-11-08] MEDS ORDERED: LIDOCAINE HCL (LTA) 4 ML SOLN ONE (07:12)
[2019-11-08] MEDS ORDERED: SUGAMMADEX SODIUM 200 MG/2 ML VIAL IV ONE (08:16)
[2019-11-08] MEDS ORDERED: CEPACOL SORE THROAT LOZENGES PO PRN (08:45)
[2019-11-08] MEDS ORDERED: PROMETHAZINE HCL (IM) 25 MG/ML VIAL IM PRN (08:45)
[2019-11-08] MEDS ORDERED: ACETAMINOPHEN 325 MG TAB PO PRN (08:45)
[2019-11-08] MEDS ORDERED: ZOLPIDEM TARTRATE 5 MG TAB PO PRN (08:45)
[2019-11-08] MEDS ORDERED: CARISOPRODOL 350 MG TAB PO PRN (08:45)
[2019-11-08] MEDS ORDERED: MAGNESIUM/ALUMINUM/SIMETHICONE 30 ML UDC PO PRN (08:45)
[2019-11-08] MEDS ORDERED: OXYCODONE/ACETAMINOPHEN 5-325 1 EACH TABLET PO PRN (08:45)
[2019-11-08] MEDS ORDERED: ONDANSETRON HCL INJ 2MG/ML 2ML 2 MG/ML VIAL IV PRN (08:45)
[2019-11-08] MEDS ORDERED: HYDROMORPHONE 2MG/ML 2 MG/ML ML IV PRN (08:45)
[2019-11-08] MEDS ORDERED: MORPHINE SULFATE INJ 4 MG/ML INJ 1ML IM PRN (08:45)
[2019-11-08] MEDS ORDERED: DEXTROSE 50% SYRINGE 50 ML IV PRN (09:00)
[2019-11-08] MEDS ORDERED: TAMSULOSIN HCL 0.4 MG CAP PO SCH (09:00)
[2019-11-08] MEDS ORDERED: FENTANYL CITRATE/PF 100MCG/2 ML INJ ONE ×2 (09:09→12:40)
[2019-11-08 09:53] VITALS: BP 135/71
[2019-11-08] MEDS ORDERED: LACTATED RINGER'S 1,000 ML IV SCH (10:00)
[2019-11-08] MEDS ORDERED: LISINOPRIL 20 MG TAB PO SCH (10:00)
[2019-11-08 10:05] VITALS: BP 135/71
[2019-11-08] MEDS: GLIPIZIDE 5 MG TAB PO SCH ×2 (10:20→16:44)
[2019-11-08 11:45] VITALS: BP 131/70
[2019-11-08] MEDS ORDERED: ONDANSETRON HCL INJ 2MG/ML 2ML 2 MG/ML VIAL ONE (12:32)
[2019-11-08] MEDS ORDERED: SEVOFLURANE INHAL SOLN 250 ML PEN BTL ONE (12:32)
[2019-11-08] MEDS ORDERED: ROCURONIUM BROMIDE 10 MG/ML 5ML VIAL IV ONE (12:32)
[2019-11-08] MEDS ORDERED: DEXAMETHASONE SOD PHOS INJ 4 MG/ML VIAL ONE (12:32)
[2019-11-08] MEDS ORDERED: PROPOFOL IV EMULSION 10 MG/ML 20 ML VIAL ONE (12:32)
[2019-11-08] MEDS ORDERED: LIDOCAINE HCL 2% LOCAL INJ 5 ML SDV VIAL INJ ONE (12:32)
[2019-11-08 15:14] VITALS: BP 145/74
[2019-11-08] MEDS: CEFAZOLIN SOD 1 GM/NS 50ML 50 ML IV SCH (16:44)
[2019-11-08 20:00] VITALS: BP_SYST 118; BP_SYST 142; BP_DIAS 56; BP_DIAS 92
[2019-11-08] MEDS ORDERED: SIMVASTATIN 20 MG TAB PO SCH (21:00)
[2019-11-08] MEDS ORDERED: ATENOLOL 50 MG TAB PO SCH (21:00)
[2019-11-09] VITALS: BP 137/75
[2019-11-09] MEDS: CEFAZOLIN SOD 1 GM/NS 50ML 50 ML IV SCH (01:57)
[2019-11-09 04:37] VITALS: BP 151/82
[2019-11-09 07:47] VITALS: BP 155/66
[2019-11-09] MEDS ORDERED: NORCO 7.5-3251 EACH PO (07:49)
[2019-11-09 08:44] VITALS: BP 155/66
[2019-11-09 09:06] VITALS: BP 155/66
== END 2019-11-09 09:15 | disposition home or self-care (01) ==
LOC: OR 05:05 → PACU V 08:48 → MED/SURG 09:38
PROVIDERS: ADMIT Neurological Surgery; ATTEND Neurological Surgery
DX: M50.021 Cervical disc disorder at C4-C5 level with myelopathy (principal); M50.121 Cervical disc disorder at C4-C5 level with radiculopathy; E66.9 Obesity, unspecified; Z68.38 Body mass index [BMI] 38.0-38.9, adult; I25.10 Atherosclerotic heart disease of native coronary artery without angina pectoris; I10 Essential (primary) hypertension; E11.9 Type 2 diabetes mellitus without complications; E78.5 Hyperlipidemia, unspecified; I48.91 Unspecified atrial fibrillation; Z85.46 Personal history of malignant neoplasm of prostate; Z95.1 Presence of aortocoronary bypass graft; Z87.891 Personal history of nicotine dependence; G47.33 Obstructive sleep apnea (adult) (pediatric); Z11.59 Encounter for screening for other viral diseases; Z88.2 Allergy status to sulfonamides; Z01.810 Encounter for preprocedural cardiovascular examination; Z01.812 Encounter for preprocedural laboratory examination; Z01.818 Encounter for other preprocedural examination; Z79.84 Long term (current) use of oral hypoglycemic drugs
CPT/HCPCS: 20931; 22551; 22845; 36415 ×3; 71046; 72040; 80048; 82948 ×2; 85025; 85610; 85730; 86850; 86900; 88304; 93005; C1713 ×2; C9359; G0378 ×2; J0690 ×2; J1100; J2001; J2405; J2704; J3010; J3370; U0002; 77003

== ENCOUNTER → 2019-12-06 | Outpatient (CLI) | payer MEDICARE, OTHER ==
[~2019-12-06] MED LIST changes: +NORCO 7.5-3251 EACH PO
--- NOTE | 2019-12-06 09:36 | Diagnostic Imaging Report ---
Radiographs of the cervical spine 4 views with flexion and extension HISTORY: Pain COMPARISON: 11/09/2019 FINDINGS: Bones: No acute displaced fracture. Osseous alignment is within normal limits. Joints: The patient is status post anterior fusion at C4/C5 with intervertebral body spacer material. The surgical hardware is intact without evidence of failure or loosening. Scattered degenerative change. No subluxation on the flexion or extension images. Soft tissues: Otherwise unremarkable IMPRESSION: The patient is status post anterior fusion at C4/C5 with intervertebral body spacer material. The surgical hardware is intact without evidence of failure or loosening. No subluxation on the flexion or extension images. Scattered degenerative change. Signed by: Dr. Cullen Coronado M.D. on 12/06/2019 9:33 AM
== END ==
LOC: RAD 08:57
PROVIDERS: ATTEND Neurological Surgery
DX: M50.20 Other cervical disc displacement, unspecified cervical region (principal); M43.22 Fusion of spine, cervical region
CPT/HCPCS: 72050

== ENCOUNTER → 2020-09-04 | Day surgery (SDC) | payer MEDICARE, OTHER ==
[2020-09-01 10:25] LABS: BASOPHILS # (AUTO) 0.1 (0.0-0.1); BASOPHILS % 0.9 % (0.0-1.0); EOSINOPHILS # (AUTO) 0.5 (0.0-0.4); EOSINOPHILS % 5.3 % (0.0-6.0); HEMATOCRIT 37.9 % (38.2-49.6); HEMOGLOBIN 12.7 g/dL (14.0-18.0); LYMPHOCYTES % 11.8 % (18.0-39.1); MEAN CORPUSCULAR HEMOGLOBIN 30.3 pg (28-32); MEAN CORPUSCULAR HGB CONC 33.5 g/dL (31-35); MEAN CORPUSCULAR VOLUME 90.5 fL (81-99); MONOCYTES # (AUTO) 0.9 (0.2-0.8); NEUTROPHILS # (AUTO) 6.1 (2.1-6.9); NEUTROPHILS % 71.3 % (38.7-80.0); PLATELET COUNT 147 x10e3/uL (140-360); RED BLOOD COUNT 4.19 x10e6/uL (4.3-5.7)
[~2020-09-04] MED LIST changes: +FENTANYL CITRATE/PF 100MCG/2 ML INJ ONE; +MIDAZOLAM HCL 2 MG/2 ML VIAL ONE; +PROPOFOL IV EMULSION 10 MG/ML 20 ML VIAL ONE
[2020-09-04 14:35] VITALS: BP 117/68
== END | disposition home or self-care (01) ==
LOC: OR 09:30
PROVIDERS: ATTEND Internal Medicine Gastroenterology
DX: K59.09 Other constipation (principal); Z85.038 Personal history of other malignant neoplasm of large intestine; K63.5 Polyp of colon; K62.1 Rectal polyp; Z98.0 Intestinal bypass and anastomosis status; K64.8 Other hemorrhoids; G47.33 Obstructive sleep apnea (adult) (pediatric); E11.9 Type 2 diabetes mellitus without complications; I25.810 Atherosclerosis of coronary artery bypass graft(s) without angina pectoris; I10 Essential (primary) hypertension; I48.91 Unspecified atrial fibrillation; F41.9 Anxiety disorder, unspecified; Z88.2 Allergy status to sulfonamides; Z79.02 Long term (current) use of antithrombotics/antiplatelets; Z79.84 Long term (current) use of oral hypoglycemic drugs; Z68.35 Body mass index [BMI] 35.0-35.9, adult; Z95.1 Presence of aortocoronary bypass graft; Z85.46 Personal history of malignant neoplasm of prostate; Z87.891 Personal history of nicotine dependence; Z80.0 Family history of malignant neoplasm of digestive organs
CPT/HCPCS: 36415 ×2; 45384; 45385; 82948; 85025; 88305; J2250; J2704; J3010; 45380; 88312

== ENCOUNTER → 2021-04-22 | Outpatient (CLI) | payer MEDICARE, OTHER ==
[~2021-04-22] MED LIST changes: +ALBUMIN 25% 12.5GM 50ML 100 ML IV ONE; -FENTANYL CITRATE/PF 100MCG/2 ML INJ ONE; -MIDAZOLAM HCL 2 MG/2 ML VIAL ONE; -PROPOFOL IV EMULSION 10 MG/ML 20 ML VIAL ONE; +SODIUM CHLORIDE 0.9% 50ML 50 ML ONE
[2021-04-22 12:39] LABS: BASOPHILS # (AUTO) 0.1 (0.0-0.1); BASOPHILS % 0.8 % (0.0-1.0); EOSINOPHILS # (AUTO) 0.3 (0.0-0.4); EOSINOPHILS % 3.8 % (0.0-6.0); HEMATOCRIT 36.3 % (38.2-49.6); HEMOGLOBIN 11.9 g/dL (14.0-18.0); LYMPHOCYTES # (AUTO) 0.9 (1.0-3.2); LYMPHOCYTES % 11.2 % (18.0-39.1); MEAN CORPUSCULAR HEMOGLOBIN 30.4 pg (28-32); MEAN CORPUSCULAR HGB CONC 32.8 g/dL (31-35); MEAN CORPUSCULAR VOLUME 92.8 fL (81-99); MONOCYTES # (AUTO) 0.8 (0.2-0.8); MONOCYTES % 9.9 % (4.4-11.3); NEUTROPHILS # (AUTO) 6.1 (2.1-6.9); NEUTROPHILS % 73.9 % (38.7-80.0); PLATELET COUNT 188 x10e3/uL (140-360); RED BLOOD COUNT 3.91 x10e6/uL (4.3-5.7); RED CELL DISTRIBUTION WIDTH 13.5 % (11.7-14.4)
[2021-04-22 12:54] LABS: INR 1.15; PROTHROMBIN TIME 15.7 seconds (11.9-14.5)
[2021-04-22 15:08] LABS: BODY FLUID APPEARANCE TURBID; BODY FLUID COLOR RED; BODY FLUID TYPE PERITONEAL; WBC,BODY FLUID 1000 cells/uL
[2021-04-22 15:09] LABS: RBC,BODY FLUID 105000 cells/uL
[2021-04-22 15:50] LABS: LYMPHOCYTES,BODY FLUID 16 %; MONO/MACROPHG,BODY FLUID 23 %; NEUTROPHILS,BODY FLUID 26 %; OTHER CELLS,BODY FLUID 35 %
== END ==
LOC: US 12:01
PROVIDERS: ATTEND Internal Medicine Gastroenterology
DX: R18.8 Other ascites (principal); K74.60 Unspecified cirrhosis of liver
CPT/HCPCS: 36415; 49083; 82040; 84157; 85025; 85610; 85730; 87070; 87205; 88112; 88305; 88342; 89051; C1729

== ENCOUNTER → 2021-05-13 | Outpatient (CLI) | payer MEDICARE, OTHER ==
[~2021-05-13] MED LIST changes: -ALBUMIN 25% 12.5GM 50ML 100 ML IV ONE; +LEVOTHYROXINE50 MCG PO; -SODIUM CHLORIDE 0.9% 50ML 50 ML ONE; +SPIRONOLACTONE25 MG PO
== END ==
LOC: US 12:16
PROVIDERS: ATTEND Internal Medicine Gastroenterology
DX: K74.00 Hepatic fibrosis, unspecified (principal)
CPT/HCPCS: 76705

== ENCOUNTER → 2021-05-19 | Day surgery (SDC) | payer MEDICARE, OTHER ==
[2021-05-15 12:12] LABS: BASOPHILS # (AUTO) 0.1 (0.0-0.1); BASOPHILS % 0.8 % (0.0-1.0); EOSINOPHILS # (AUTO) 0.3 (0.0-0.4); EOSINOPHILS % 3.4 % (0.0-6.0); HEMATOCRIT 36.4 % (38.2-49.6); HEMOGLOBIN 11.6 g/dL (14.0-18.0); LYMPHOCYTES # (AUTO) 1.1 (1.0-3.2); LYMPHOCYTES % 13.3 % (18.0-39.1); MEAN CORPUSCULAR HEMOGLOBIN 30.2 pg (28-32); MEAN CORPUSCULAR HGB CONC 31.9 g/dL (31-35); MEAN CORPUSCULAR VOLUME 94.8 fL (81-99); MONOCYTES # (AUTO) 0.9 (0.2-0.8); MONOCYTES % 10.7 % (4.4-11.3); NEUTROPHILS # (AUTO) 5.7 (2.1-6.9); NEUTROPHILS % 71.4 % (38.7-80.0); PLATELET COUNT 215 x10e3/uL (140-360); RED BLOOD COUNT 3.84 x10e6/uL (4.3-5.7); RED CELL DISTRIBUTION WIDTH 13.8 % (11.7-14.4)
[2021-05-15 12:23] LABS: INR 1.84; PARTIAL THROMBOPLASTIN TIME 33.7 seconds (23.8-35.5); PROTHROMBIN TIME 22.7 seconds (11.9-14.5)
[2021-05-15 12:30] LABS: ALBUMIN 3.8 g/dL (3.5-5.0); ANION GAP 12.7 mmol/L (8-16); CALCIUM 9.6 mg/dL (8.4-10.2); CREATININE, SERUM 1.36 mg/dL (0.72-1.25); POTASSIUM 4.7 mmol/L (3.5-5.1)
[~2021-05-19] MED LIST changes: +BICALUTAMIDE50 MG PO; +LIDOCAINE HCL 2% LOCAL INJ 5 ML SDV VIAL INJ ONE; +PROPOFOL IV EMULSION 10 MG/ML 20 ML VIAL ONE
[2021-05-19 14:45] VITALS: BP 135/91
== END | disposition home or self-care (01) ==
LOC: OR 11:28
PROVIDERS: ATTEND Internal Medicine Gastroenterology
DX: K74.60 Unspecified cirrhosis of liver (principal); K31.7 Polyp of stomach and duodenum; I85.10 Secondary esophageal varices without bleeding; R18.8 Other ascites; K29.70 Gastritis, unspecified, without bleeding; K44.9 Diaphragmatic hernia without obstruction or gangrene; Z85.038 Personal history of other malignant neoplasm of large intestine; Z71.3 Dietary counseling and surveillance; G47.33 Obstructive sleep apnea (adult) (pediatric); I48.91 Unspecified atrial fibrillation; I10 Essential (primary) hypertension; I25.810 Atherosclerosis of coronary artery bypass graft(s) without angina pectoris; E11.9 Type 2 diabetes mellitus without complications; E03.9 Hypothyroidism, unspecified; Z88.2 Allergy status to sulfonamides; Z95.1 Presence of aortocoronary bypass graft; Z87.891 Personal history of nicotine dependence; Z01.812 Encounter for preprocedural laboratory examination; Z20.822 Contact with and (suspected) exposure to COVID-19; Z79.02 Long term (current) use of antithrombotics/antiplatelets; Z79.84 Long term (current) use of oral hypoglycemic drugs; Z79.899 Other long term (current) drug therapy; Z85.46 Personal history of malignant neoplasm of prostate; Z68.36 Body mass index [BMI] 36.0-36.9, adult; E78.00 Pure hypercholesterolemia, unspecified; Z80.0 Family history of malignant neoplasm of digestive organs
CPT/HCPCS: 36415 ×2; 43239; 80053; 82948; 85025; 85610; 85730; 88305; 88312; J2001; J2704; U0002

== ENCOUNTER → 2021-10-08 | Outpatient (CLI) | payer MEDICARE, OTHER ==
[~2021-10-08] MED LIST changes: +ALBUMIN 25% 12.5GM 50ML 150 ML IV ONE; -LIDOCAINE HCL 2% LOCAL INJ 5 ML SDV VIAL INJ ONE; -PROPOFOL IV EMULSION 10 MG/ML 20 ML VIAL ONE
[2021-10-08 10:11] LABS: HEMOGLOBIN 11.4 g/dL (14.0-18.0)
[2021-10-08 10:34] LABS: INR 1.05; PROTHROMBIN TIME 14.6 seconds (11.9-14.5)
[2021-10-08 10:35] LABS: PARTIAL THROMBOPLASTIN TIME 29.7 seconds (23.8-35.5)
[2021-10-08 14:24] LABS: BODY FLUID APPEARANCE CLOUDY; BODY FLUID COLOR RED; BODY FLUID TYPE PERITONEAL; RBC,BODY FLUID 93000 cells/uL; WBC,BODY FLUID 704 cells/uL
[2021-10-08 18:31] LABS: LYMPHOCYTES,BODY FLUID 50 %; NEUTROPHILS,BODY FLUID 5 %
[2021-10-08 18:32] LABS: OTHER CELLS,BODY FLUID 45 %
== END ==
LOC: US 09:28
DX: R18.8 Other ascites (principal); K74.60 Unspecified cirrhosis of liver
CPT/HCPCS: 36415; 49083; 82040; 84157; 85014; 85049; 85610; 85730; 87070; 87205; 88300; 89051

== ENCOUNTER → 2021-11-23 | Outpatient (CLI) | payer MEDICARE, OTHER ==
[~2021-11-23] MED LIST changes: +ALBUMIN 25% 12.5GM 50ML 100 ML IV ONE; -ALBUMIN 25% 12.5GM 50ML 150 ML IV ONE; +ALBUMIN 25% 12.5GM 50ML 50 ML IV ONE
[2021-11-23 12:04] LABS: HEMOGLOBIN 11.7 g/dL (14.0-18.0)
[2021-11-23 12:16] LABS: INR 1.03; PROTHROMBIN TIME 14.4 seconds (11.9-14.5)
[2021-11-23 12:17] LABS: PARTIAL THROMBOPLASTIN TIME 29.3 seconds (23.8-35.5)
== END ==
LOC: US 11:38
DX: R18.8 Other ascites (principal); Z98.890 Other specified postprocedural states
CPT/HCPCS: 36415; 49083; 71046; 85014; 85049; 85610; 85730; C1729

== ENCOUNTER → 2022-03-04 | Outpatient (CLI) | payer MEDICARE, OTHER ==
[~2022-03-04] MED LIST changes: -ALBUMIN 25% 12.5GM 50ML 100 ML IV ONE; +ALBUMIN 25% 12.5GM 50ML 200 ML IV ONE; -ALBUMIN 25% 12.5GM 50ML 50 ML IV ONE
== END ==
LOC: US 13:13
DX: R18.8 Other ascites (principal)
CPT/HCPCS: 49083; C1729

== ENCOUNTER → 2024-02-03 | Outpatient (REF) | payer MEDICARE, OTHER ==
[~2024-02-03] MED LIST changes: +ALBUMIN 25% 12.5GM 50ML 0 ML IV ONE; -ALBUMIN 25% 12.5GM 50ML 200 ML IV ONE; +IRON; +LUPRON DEPOT7.5 MG IM; +MULTI-VITAMIN1 EACH PO
== END ==
LOC: US 08:20
PROVIDERS: ATTEND Legal Medicine
DX: R18.8 Other ascites (principal)
CPT/HCPCS: 76705

== ENCOUNTER 2024-06-17 11:15 | Emergency (ER) | payer MEDICARE, OTHER ==
[~2024-06-17] VITALS: Ht 177.8 cm; Wt 113.4 kg
[~2024-06-17 11:15] MED LIST changes: -ALBUMIN 25% 12.5GM 50ML 0 ML IV ONE
[2024-06-17 11:44] VITALS: PULSE 85; RESP 18; TEMP 98.2; O2SAT 96
[2024-06-17] MEDS: KETOROLAC TROMETHAMINE 60 MG/2 ML VIAL IM STA (12:02)
[2024-06-17] MEDS ORDERED: PREDNISONE5 MG PO (13:45)
[2024-06-17] MEDS ORDERED: ULTRAM 50MG50 MG PO (13:45)
[2024-06-17] MEDS ORDERED: PREDNISONE20 MG PO (13:48)
== END 2024-06-17 14:03 | disposition home or self-care (01) ==
LOC: ER 11:38
DX: M54.42 Lumbago with sciatica, left side (principal); K80.20 Calculus of gallbladder without cholecystitis without obstruction; K76.0 Fatty (change of) liver, not elsewhere classified; I10 Essential (primary) hypertension; E11.9 Type 2 diabetes mellitus without complications; I48.91 Unspecified atrial fibrillation; M19.09 Primary osteoarthritis, other specified site; M54.9 Dorsalgia, unspecified; G89.29 Other chronic pain; I25.2 Old myocardial infarction
CPT/HCPCS: 74176; 99283; J1885

== ENCOUNTER 2024-06-20 12:31 | Emergency (ER) | payer MEDICARE, OTHER ==
[~2024-06-20] VITALS: Ht 182.9 cm; Wt 108.0 kg
[~2024-06-20 12:31] MED LIST changes: +PREDNISONE20 MG PO; +PREDNISONE5 MG PO; +ULTRAM 50MG50 MG PO
[2024-06-20 12:52] VITALS: RESP 18; TEMP 98
[2024-06-20] MEDS: CYCLOBENZAPRINE HCL 10 MG TAB PO ONE (13:26)
[2024-06-20] MEDS: KETOROLAC TROMETHAMINE 30 MG/ML VIAL IM ONE (13:26)
[2024-06-20 13:42] VITALS: PULSE 55; O2SAT 98
[2024-06-20] MEDS ORDERED: CYCLOBENZAPRINE10 MG PO (15:08)
== END 2024-06-20 15:52 | disposition home or self-care (01) ==
LOC: ER 12:41
DX: M54.50 Low back pain, unspecified (principal); I10 Essential (primary) hypertension; E11.9 Type 2 diabetes mellitus without complications; I48.91 Unspecified atrial fibrillation; M54.9 Dorsalgia, unspecified; G89.29 Other chronic pain; M19.09 Primary osteoarthritis, other specified site; I25.2 Old myocardial infarction; Z85.038 Personal history of other malignant neoplasm of large intestine; Z85.46 Personal history of malignant neoplasm of prostate; Z95.1 Presence of aortocoronary bypass graft
CPT/HCPCS: 99283; J1885

== ENCOUNTER 2024-10-09 12:51 | Inpatient (IN) | payer MEDICARE, OTHER ==
[~2024-10-09] VITALS: Ht 182.9 cm; Wt 108.0 kg
[~2024-10-09 12:51] MED LIST changes: +CYCLOBENZAPRINE10 MG PO; +K-DUR10 MEQ PO; +LISINOPRIL10 MG PO
[2024-10-09] MEDS ORDERED: SODIUM CHLORIDE FLUSH 10 ML SYR IV PRN (13:30)
[2024-10-09 14:37] LABS: BASOPHILS % 0.4 % (0.0-1.0); EOSINOPHILS % 1.5 % (0.0-6.0); LYMPHOCYTES % 6.7 % (18.0-39.1); MONOCYTES % 9.2 % (4.4-11.3); NEUTROPHILS % 81.8 % (38.7-80.0); RED CELL DISTRIBUTION WIDTH 14.1 % (11.7-14.4)
[2024-10-09 14:53] LABS: EST GLOMERULAR FILTRATION RATE 73.0 ML/MIN (>=60)
[2024-10-09] MEDS ORDERED: ONDANSETRON HCL INJ 2MG/ML 2ML 2 MG/ML VIAL IV PRN (15:45)
[2024-10-09] MEDS ORDERED: SODIUM CHLORIDE FLUSH 10 ML SYR INJ PRN (15:45)
[2024-10-09] MEDS: DIPHENHYDRAMINE HCL 30 GM TUBE TOP PRN (17:04)
[2024-10-09] MEDS: FUROSEMIDE INJ 10 MG/ML 4 ML VIAL IV SCH (17:23)
[2024-10-09 17:30] VITALS: PULSE 94; RESP 16; TEMP 98.2
[2024-10-09 18:45] VITALS: BP 100/71; PULSE 93; RESP 22; TEMP 98.2; O2SAT 95
[2024-10-09 19:18] VITALS: BP 98/78; PULSE 71; RESP 18; TEMP 98; O2SAT 96
[2024-10-09] MEDS ORDERED: DOCUSATE SODIU100 MG PO (19:44)
[2024-10-09] MEDS ORDERED: ZETIA10 MG PO (19:48)
[2024-10-09] MEDS ORDERED: HYDROCODON-ACE1 EA15 PO (19:48)
[2024-10-09] MEDS ORDERED: COMBIVENT RESPIM4 GM IH (19:48)
[2024-10-09] MEDS ORDERED: LASIX20 MG PO (19:48)
[2024-10-09] MEDS ORDERED: MIDODRINE HCL5 MG PO (19:52)
[2024-10-09] MEDS ORDERED: MAGNESIUM OXID400 MG PO (19:52)
[2024-10-09] MEDS ORDERED: POTASSIUM CHLO20 ME1 PO (19:55)
[2024-10-09] MEDS ORDERED: PROSCAR5 MG PO (19:55)
[2024-10-09 20:00] VITALS: BP 98/78; PULSE 71; RESP 18; TEMP 98; O2SAT 96
[2024-10-09] MEDS: TRAMADOL HCL 50 MG TAB PO PRN (20:43)
[2024-10-09 21:00] VITALS: BP 98/78; PULSE 71; RESP 18; TEMP 98; O2SAT 96
[2024-10-09 23:18] VITALS: BP 111/69; PULSE 109; RESP 19; TEMP 98; O2SAT 97
[2024-10-10] VITALS (7 sets, daily range): BP systolic 99–124; BP diastolic 50–76; PULSE 64–107; RESP 16–22; TEMP 97.8–99; O2SAT 95–97
[2024-10-10] MEDS ORDERED: DEXTROSE 50% SYRINGE 50 ML IV PRN (00:30)
[2024-10-10] MEDS ORDERED: ACETAMINOPHEN 325 MG TAB PO PRN (00:45)
[2024-10-10 05:30] LABS: BASOPHILS % 0.5 % (0.0-1.0); EOSINOPHILS % 0.9 % (0.0-6.0); LYMPHOCYTES % 3.9 % (18.0-39.1); MONOCYTES % 10.1 % (4.4-11.3); NEUTROPHILS % 84.3 % (38.7-80.0); RED CELL DISTRIBUTION WIDTH 14.1 % (11.7-14.4)
[2024-10-10 06:04] LABS: EST GLOMERULAR FILTRATION RATE 65.0 ML/MIN (>=60)
[2024-10-10] MEDS: INSULIN LISPRO 100 UNIT/1 ML 3ML VIAL SQ SCH (07:30)
[2024-10-10] MEDS: MIDODRINE HCL 5 MG TABLET PO SCH (08:11)
[2024-10-10] MEDS: TAMSULOSIN HCL 0.4 MG CAP PO SCH (08:12)
[2024-10-10] MEDS: SIMVASTATIN 20 MG TAB PO SCH (08:12)
[2024-10-10] MEDS: LEVOTHYROXINE SODIUM 50 MCG TAB PO SCH (08:12)
[2024-10-10] MEDS: ATENOLOL 50 MG TAB PO SCH (09:33)
[2024-10-10] MEDS: EZETIMIBE 10 MG TAB PO SCH (21:43)
[2024-10-10] MEDS ORDERED: BISACODYL 10 MG SUPP PR PRN (23:15)
[2024-10-11 05:30] LABS: BASOPHILS % 0.3 % (0.0-1.0); EOSINOPHILS % 0.1 % (0.0-6.0); LYMPHOCYTES % 2.3 % (18.0-39.1); MONOCYTES % 7.9 % (4.4-11.3); NEUTROPHILS % 88.6 % (38.7-80.0); RED CELL DISTRIBUTION WIDTH 14.4 % (11.7-14.4)
[2024-10-11 06:09] LABS: EST GLOMERULAR FILTRATION RATE 53.0 ML/MIN (>=60)
[2024-10-11 08:04] VITALS: BP 108/55; PULSE 85; RESP 18; TEMP 98.5; O2SAT 97
[2024-10-11] MEDS: DOCUSATE SODIUM 100 MG CAP PO SCH (09:49)
[2024-10-11] MEDS: ATENOLOL 50 MG TAB PO SCH (09:50)
[2024-10-11] MEDS: SENNOSIDES 8.6 MG TAB PO SCH (09:50)
[2024-10-11 10:00] VITALS: BP 108/55; PULSE 85; RESP 18; TEMP 98.5; O2SAT 97
[2024-10-11 11:18] VITALS: BP 114/57; PULSE 106; RESP 16; TEMP 98.1; O2SAT 97
[2024-10-11 15:47] VITALS: BP 111/84; PULSE 105; RESP 19; TEMP 98.8; O2SAT 96
[2024-10-11] MEDS: POLYETHYLENE GLYCOL 3350 17 GM PACK PO PRN (16:10)
[2024-10-11] MEDS: APIXABAN 5 MG TABLET PO SCH (16:11)
[2024-10-11 23:36] VITALS: BP 111/84; PULSE 105; RESP 19; TEMP 98.8; O2SAT 96
[2024-10-12] VITALS (10 sets, daily range): BP systolic 83–120; BP diastolic 49–68; PULSE 55–118; RESP 16–20; TEMP 97.9–99.7; O2SAT 93–100
[2024-10-12 02:44] LABS: LEUKOCYTE ESTERASE ,URINE SMALL (NEGATIVE); PROTEIN,URINE DIPSTICK 1+ (NEGATIVE); URINE UROBILINOGEN 0.2 mg/dL (0.2 - 1)
[2024-10-12 02:50] LABS: WBC,URINE (MAN) >50 /HPF (0-5)
[2024-10-12 02:51] LABS: EPITHELIAL CELLS,URINE FEW /LPF
[2024-10-12 05:19] LABS: BASOPHILS % 0.2 % (0.0-1.0); EOSINOPHILS % 0.1 % (0.0-6.0); LYMPHOCYTES % 1.8 % (18.0-39.1); MONOCYTES % 6.9 % (4.4-11.3); NEUTROPHILS % 89.9 % (38.7-80.0); RED CELL DISTRIBUTION WIDTH 14.2 % (11.7-14.4)
[2024-10-12 05:42] LABS: EST GLOMERULAR FILTRATION RATE 40.0 ML/MIN (>=60)
[2024-10-12] MEDS: MIDODRINE HCL 5 MG TABLET PO SCH (08:42)
[2024-10-12] MEDS ORDERED: Vancomycin IV 1 GM in SODIUM CHLORIDE 0.9% 250ML 250 ML IV ONE (09:00)
[2024-10-12] MEDS: VANCOMYCIN 1.5 GM/300 ML (PEG) 300 ML IV SCH (11:43)
[2024-10-12] MEDS: SODIUM CHLORIDE 0.9% 500ML 500 ML IV ONE (11:44)
[2024-10-13] VITALS (9 sets, daily range): BP systolic 90–114; BP diastolic 53–63; PULSE 16–96; RESP 18–20; TEMP 97.6–98.9; O2SAT 94–100
[2024-10-13 09:43] LABS: BASOPHILS % 0.3 % (0.0-1.0); EOSINOPHILS % 0.4 % (0.0-6.0); LYMPHOCYTES % 1.7 % (18.0-39.1); MONOCYTES % 7.4 % (4.4-11.3); NEUTROPHILS % 89.6 % (38.7-80.0); RED CELL DISTRIBUTION WIDTH 14.3 % (11.7-14.4)
[2024-10-13 10:00] LABS: EST GLOMERULAR FILTRATION RATE 39.0 ML/MIN (>=60)
[2024-10-14] VITALS (7 sets, daily range): BP systolic 92–148; BP diastolic 61–98; PULSE 65–95; RESP 16–20; TEMP 97.5–99.2; O2SAT 95–100
[2024-10-14] MEDS: LINEZOLID 600 MG/D5W 300ML 300 ML IV SCH (08:59)
[2024-10-14 09:25] LABS: BASOPHILS % 0.2 % (0.0-1.0); EOSINOPHILS % 1.2 % (0.0-6.0); LYMPHOCYTES % 2.0 % (18.0-39.1); MONOCYTES % 8.7 % (4.4-11.3); NEUTROPHILS % 87.2 % (38.7-80.0); RED CELL DISTRIBUTION WIDTH 14.1 % (11.7-14.4)
[2024-10-14 09:38] LABS: EST GLOMERULAR FILTRATION RATE 48.0 ML/MIN (>=60)
[2024-10-14] MEDS: FUROSEMIDE INJ 10 MG/ML 4 ML VIAL IV ONE (16:36)
[2024-10-15] VITALS: BP 98/53; PULSE 88; RESP 20; TEMP 98.8; O2SAT 100
[2024-10-15 06:23] LABS: BASOPHILS % 0.3 % (0.0-1.0); EOSINOPHILS % 1.3 % (0.0-6.0); LYMPHOCYTES % 3.7 % (18.0-39.1); MONOCYTES % 8.3 % (4.4-11.3); NEUTROPHILS % 85.5 % (38.7-80.0); RED CELL DISTRIBUTION WIDTH 14.0 % (11.7-14.4)
[2024-10-15 07:01] LABS: EST GLOMERULAR FILTRATION RATE 60.0 ML/MIN (>=60)
[2024-10-15 08:00] VITALS: BP 101/67; PULSE 94; RESP 22; TEMP 98.4; O2SAT 93
[2024-10-15 09:00] VITALS: BP 101/67; PULSE 94; RESP 22; TEMP 98.4; O2SAT 93
[2024-10-15] MEDS: POTASSIUM CHLORIDE 10MEQ EA PO ONE (09:31)
[2024-10-15 12:00] VITALS: BP 110/77; PULSE 95; RESP 16; TEMP 98.5; O2SAT 100
[2024-10-15 16:00] VITALS: BP 125/57; PULSE 83; RESP 16; TEMP 98.8; O2SAT 100
[2024-10-15 20:00] VITALS: BP 112/62; PULSE 87; RESP 20; TEMP 98.5; O2SAT 100
[2024-10-16] MEDS: FUROSEMIDE INJ 10 MG/ML 4 ML VIAL ONE (06:29)
[2024-10-16 06:48] LABS: BASOPHILS % 0.3 % (0.0-1.0); EOSINOPHILS % 1.7 % (0.0-6.0); LYMPHOCYTES % 5.1 % (18.0-39.1); MONOCYTES % 8.8 % (4.4-11.3); NEUTROPHILS % 83.0 % (38.7-80.0); RED CELL DISTRIBUTION WIDTH 14.1 % (11.7-14.4)
[2024-10-16 07:17] LABS: EST GLOMERULAR FILTRATION RATE 69.0 ML/MIN (>=60)
[2024-10-16 08:29] VITALS: BP 116/68; PULSE 81; RESP 17; TEMP 97.3; O2SAT 98
[2024-10-16 09:00] VITALS: BP 116/68; PULSE 81; RESP 17; TEMP 97.3; O2SAT 98
[2024-10-16 11:35] VITALS: BP 108/59; PULSE 60; RESP 19; TEMP 97.7; O2SAT 95
[2024-10-16] MEDS ORDERED: ATENOLOL50 MG PO (12:35)
[2024-10-16] MEDS ORDERED: ELIQUIS5 MG PO (12:35)
[2024-10-16] MEDS ORDERED: MIDODRINE HCL5 MG PO (12:35)
[2024-10-16 15:45] VITALS: BP 124/54; PULSE 98; RESP 18; TEMP 97.7; O2SAT 100
== END 2024-10-16 17:59 | DRG 535 ==
LOC: ER 12:59 → ERHOLD 15:38 → MED/SURG 17:51 → OBSVTOIN 10-10 09:21 → MED/SURG 10-12 14:35 → MED/SURG2 10-14 11:46
PROVIDERS: ADMIT Internal Medicine; ATTEND Internal Medicine
PROC: 0T9B70Z Drainage of Bladder with Drainage Device, Via Natural or Artificial Opening (ICD-10-PCS; principal; 2024-10-12)
PROC: 3E0333Z Introduction of Anti-inflammatory into Peripheral Vein, Percutaneous Approach (ICD-10-PCS; 2024-10-12)
DX: S32.512A Fracture of superior rim of left pubis, initial encounter for closed fracture (principal); A41.51 Sepsis due to Escherichia coli [E. coli]; N17.0 Acute kidney failure with tubular necrosis; R65.20 Severe sepsis without septic shock; S32.402A Unspecified fracture of left acetabulum, initial encounter for closed fracture; I11.0 Hypertensive heart disease with heart failure; I50.43 Acute on chronic combined systolic (congestive) and diastolic (congestive) heart failure; N13.8 Other obstructive and reflux uropathy; Z16.12 Extended spectrum beta lactamase (ESBL) resistance; Z16.21 Resistance to vancomycin; I48.20 Chronic atrial fibrillation, unspecified; N30.90 Cystitis, unspecified without hematuria; S32.301A Unspecified fracture of right ilium, initial encounter for closed fracture; K74.60 Unspecified cirrhosis of liver; B96.20 Unspecified Escherichia coli [E. coli] as the cause of diseases classified elsewhere; E11.51 Type 2 diabetes mellitus with diabetic peripheral angiopathy without gangrene; E87.70 Fluid overload, unspecified; R33.9 Retention of urine, unspecified; I25.10 Atherosclerotic heart disease of native coronary artery without angina pectoris; E03.9 Hypothyroidism, unspecified; M54.9 Dorsalgia, unspecified; N40.1 Benign prostatic hyperplasia with lower urinary tract symptoms; R33.8 Other retention of urine; M19.90 Unspecified osteoarthritis, unspecified site; E66.9 Obesity, unspecified; Z68.32 Body mass index [BMI] 32.0-32.9, adult; W18.30XA Fall on same level, unspecified, initial encounter; Y92.129 Unspecified place in nursing home as the place of occurrence of the external cause; Z79.01 Long term (current) use of anticoagulants; Z79.52 Long term (current) use of systemic steroids; Z79.890 Hormone replacement therapy; I25.2 Old myocardial infarction; Z85.038 Personal history of other malignant neoplasm of large intestine; Z85.46 Personal history of malignant neoplasm of prostate; Z95.1 Presence of aortocoronary bypass graft; Z88.5 Allergy status to narcotic agent; Z88.2 Allergy status to sulfonamides
CPT/HCPCS: 36415; 71045; 72190; 72192; 76700; 80048; 80053; 80202; 81001; 82550; 82948; 83605; 83735; 83880; 84484; 85025; 87040; 87086; 87186; 93005; 93306; 93925; 94760; 94799; 96372; 99252; 99284; G0378; J0692; J1938; J2020; J2543; J7040